=== PATIENT | male | born 1945 | race Two or more races ===

== ENCOUNTER 2024-09-24 20:54 | Inpatient (IN) | payer MEDICARE ==
[~2024-09-24] VITALS: Ht 160 cm; Wt 62.6 kg
[2024-09-24 21:43] LABS: WHITE BLOOD COUNT (AUTO) 3.4 K/uL (4.3-11.0)
[2024-09-24 21:55] LABS: BASOPHILS % (AUTO) 0.2 % (0.0-2.0); EOSINOPHILS % (AUTO) 0.6 % (0.0-6.0); HEMATOCRIT 43 % (39-51); HEMOGLOBIN 15.1 g/dL (13.5-17.5); LYMPHOCYTES # (AUTO) 1.2 K/uL (0.8-4.8); LYMPHOCYTES % (AUTO) 36.7 % (20.0-44.0); MEAN CORPUSCULAR HEMOGLOBIN 31 PG (26.0-33.0); MEAN CORPUSCULAR HGB CONC 35 g/dl (31.0-36.0); MEAN CORPUSCULAR VOLUME 89 fL (80-96); MONOCYTES # (AUTO) 0.7 K/uL (0.1-1.30); MONOCYTES % (AUTO) 19.5 % (2.0-12.0); NEUTROPHILS # (AUTO) 1.5 K/uL (1.8-8.9); PLATELET COUNT (AUTO) 153 K/uL (150-450); RED BLOOD CELL COUNT(AUTO) 4.87 MIL/uL (4.5-6.0); RED CELL DISTRIBUTION WIDTH 13.8 % (11.5-15.0)
[2024-09-24 21:58] LABS: INR 1.07 (0.91-1.10); PARTIAL THROMBOPLASTIN TIME 28.5 SEC (24.3-34.3); PROTHROMBIN TIME 11.3 SECS (9.2-11.1)
[2024-09-24 22:17] LABS: ALANINE AMINOTRANSFERASE 34 U/L (12-78); ALBUMIN 3.8 g/dL (3.4-5.0); ALKALINE PHOSPHATASE 97 U/L (46-116); ASPARTATE AMINOTRANSFERASE 48 U/L (15-37); BILIRUBIN,DIRECT 0.2 mg/dL (0.0-0.2); BILIRUBIN,TOTAL 0.8 mg/dL (0.2-1.0); CALCIUM, SERUM 9.5 mg/dL (8.5-10.1); CARBON DIOXIDE 30 mmol/L (21-32); CHLORIDE 96 mmol/L (98-107); POTASSIUM 4.2 mmol/L (3.5-5.1); SODIUM SERUM 131 mmol/L (136-145); TOTAL PROTEIN, SERUM 7.9 g/dL (6.4-8.2); UREA NITROGEN, BLOOD 14 mg/dL (7-18)
[2024-09-24 22:21] LABS: BAND % (MANUAL) 1 % (0.0-5.0); EOSINOPHILS % (MANUAL) 1 % (0-4); LYMPHOCYTES % (MANUAL) 38 % (16-48); MONOCYTES % (MANUAL) 18 % (0-11.0); NEUTROPHILS % (MANUAL) 42 (42-76); PLATELET ESTIMATE ADEQUATE
[2024-09-24 22:22] LABS: ANISOCYTOSIS 1+
[2024-09-24 22:27] LABS: GLUCOSE 49 mg/dL (74-106)
[2024-09-24 22:28] LABS: LACTIC ACID 2.5 mmol/L (0.4-2.0)
[2024-09-24] MEDS ORDERED: DEXTROSE 50%-WATER 50 ML DISP.SYRIN ONE (22:43)
[2024-09-24 22:47] LABS: APPEARANCE,URINE CLEAR (CLEAR); BILIRUBIN,URINE NEGATIVE (NEGATIVE); BLOOD, URINE NEGATIVE Ery/uL (NEGATIVE); COLOR,URINE YELLOW (YELLOW); KETONES,URINE NEGATIVE (NEGATIVE); LEUKOCYTE ESTERASE ,URINE NEGATIVE (NEGATIVE); NITRITE, URINE NEGATIVE (NEGATIVE); PH,URINE 7.5 (5.0-8.0); PROTEIN,URINE NEGATIVE (NEGATIVE); UGLUCOSE NEGATIVE (NEGATIVE)
[2024-09-24] MEDS: DEXTROSE 50%-WATER 50 ML DISP.SYRIN IVP ONE (22:55)
[2024-09-24 22:57] LABS: RBC,URINE NONE SEEN /HPF (0-2); WBC,URINE 0-2 /HPF (0-3)
[2024-09-24 22:58] LABS: ADD URINE CULTURE NO; BACTERIA,URINE None seen /HPF (None Seen); SQUAMOUS EPITHELIAL CELL,UR Rare /HPF (None Seen)
[2024-09-24] MEDS: IV NS 0.9% 1,000 ML BAG IV ONE (23:15)
[2024-09-25] MEDS: ACETAMINOPHEN 325 MG TABLET PO ONE (00:29)
[2024-09-25] MEDS ORDERED: MAG HYDROX/AL HYDROX/SIMETH 30 ML UDC PO PRN (00:30)
[2024-09-25] MEDS ORDERED: MAGNESIUM HYDROXIDE 30 ML UDC PO PRN (00:30)
[2024-09-25] MEDS ORDERED: ONDANSETRON HCL/PF 4 MG/2 ML VIAL IVP PRN (00:30)
[2024-09-25] MEDS ORDERED: Z GUARD REMEDY 4 OZ OINT TP PRN (00:30)
[2024-09-25] MEDS ORDERED: ALBUTEROL FS 2.5 MG/3 ML VIAL.NEB NEB PRN (00:30)
[2024-09-25 02:30] VITALS: BP 113/57; TEMP 98.2; O2SAT 96
[2024-09-25] MEDS: IV NS 0.9% 1,000 ML IV PRN (03:23)
[2024-09-25 04:00] VITALS: BP 142/70; TEMP 98.1; O2SAT 97
[2024-09-25] MEDS: DEXTROSE 50%-WATER 50 ML DISP.SYRIN IV PRN (06:22)
[2024-09-25] MEDS: BLOOD SUGAR DIAGNOSTIC 1 EACH STRIP IN SCH (06:45)
[2024-09-25] MEDS: ENOXAPARIN SODIUM 30 MG/0.3 ML DISP.SYRIN SQ SCH (06:47)
[2024-09-25 07:01] LABS: BASOPHILS % (AUTO) 0.2 % (0.0-2.0); EOSINOPHILS % (AUTO) 0.7 % (0.0-6.0); HEMATOCRIT 39 % (39-51); HEMOGLOBIN 13.4 g/dL (13.5-17.5); LYMPHOCYTES # (AUTO) 1.8 K/uL (0.8-4.8); LYMPHOCYTES % (AUTO) 53.6 % (20.0-44.0); MEAN CORPUSCULAR HEMOGLOBIN 30 PG (26.0-33.0); MEAN CORPUSCULAR HGB CONC 34 g/dl (31.0-36.0); MEAN CORPUSCULAR VOLUME 89 fL (80-96); MONOCYTES # (AUTO) 0.7 K/uL (0.1-1.30); MONOCYTES % (AUTO) 19.6 % (2.0-12.0); NEUTROPHILS # (AUTO) 0.9 K/uL (1.8-8.9); NEUTROPHILS % (AUTO) 25.9 % (43.0-81.0); PLATELET COUNT (AUTO) 137 K/uL (150-450); RED BLOOD CELL COUNT(AUTO) 4.42 MIL/uL (4.5-6.0); RED CELL DISTRIBUTION WIDTH 13.6 % (11.5-15.0); WHITE BLOOD COUNT (AUTO) 3.4 K/uL (4.3-11.0)
[2024-09-25 07:17] LABS: LACTIC ACID 0.6 mmol/L (0.4-2.0)
[2024-09-25 07:33] LABS: CALCIUM, SERUM 8.5 mg/dL (8.5-10.1); CREATININE 0.8 mg/dL (0.6-1.3); MAGNESIUM 1.7 mg/dL (1.8-2.4); PHOSPHORUS 3.4 mg/dL (2.5-4.9); POTASSIUM 3.4 mmol/L (3.5-5.1); THYROID STIMULATING HORMONE 0.61 uIU/mL (0.358-3.74)
[2024-09-25] MEDS: PANTOPRAZOLE 40 MG TABLET.DR PO SCH (07:36)
[2024-09-25 08:39] VITALS: BP 158/71; TEMP 97.5; O2SAT 97
[2024-09-25] MEDS ORDERED: BENZ-13 PO (08:45)
[2024-09-25] MEDS ORDERED: GLIP5TAB26 PO (08:45)
[2024-09-25] MEDS ORDERED: OSEL75CA PO (08:45)
[2024-09-25] MEDS ORDERED: CITA20TA16 PO (08:45)
[2024-09-25] MEDS ORDERED: METF-442 PO (08:45)
[2024-09-25] MEDS ORDERED: CYAN100T44 PO (08:45)
[2024-09-25] MEDS ORDERED: CHOL400T28 PO (08:45)
[2024-09-25] MEDS ORDERED: OSELTAMIVIR PHOSPHATE SUSP 6 MG/ML BOTTLE PO SCH ×2 (09:00)
[2024-09-25] MEDS: MAGNESIUM OXIDE 400 MG TABLET PO ONE (09:23)
[2024-09-25 09:47] LABS: ANISOCYTOSIS 1+; EOSINOPHILS % (MANUAL) 2 % (0-4); LYMPHOCYTES % (MANUAL) 56 % (16-48); MONOCYTES % (MANUAL) 18 % (0-11.0); NEUTROPHILS % (MANUAL) 24 (42-76); PLATELET ESTIMATE DECREASED
[2024-09-25] MEDS: POTASSIUM CHLORIDE 20 MEQ TAB.PRT.SR PO SCH (10:04)
[2024-09-25] MEDS: INSULIN REGULAR, HUMAN 100 UNIT/ML 3 ML VIAL SQ PRN (11:49)
[2024-09-25 12:00] VITALS: BP 151/69; TEMP 97.7; O2SAT 97
[2024-09-25] MEDS: OSELTAMIVIR PHOSPHATE 75 MG CAPSULE PO SCH (12:46)
[2024-09-25] MEDS: CITALOPRAM HYDROBROMIDE 20 MG TABLET PO ONE (12:58)
[2024-09-25 16:53] VITALS: BP 158/71; TEMP 97.5; O2SAT 97
[2024-09-25 20:00] VITALS: BP 160/90; TEMP 98.1; O2SAT 99
[2024-09-25] MEDS: ACETAMINOPHEN 325 MG TABLET PO PRN (20:45)
[2024-09-26] VITALS: BP 170/90; O2SAT 96
[2024-09-26] MEDS: CLONIDINE HCL 0.1 MG TABLET PO PRN ×2 (01:05→22:15)
[2024-09-26 01:20] VITALS: BP 170/90; TEMP 98.1; O2SAT 96
[2024-09-26 07:21] LABS: BASOPHILS % (AUTO) 0.4 % (0.0-2.0); EOSINOPHILS # (AUTO) 0.1 K/uL (0.0-0.7); EOSINOPHILS % (AUTO) 3.2 % (0.0-6.0); HEMATOCRIT 38 % (39-51); HEMOGLOBIN 12.9 g/dL (13.5-17.5); LYMPHOCYTES % (AUTO) 60.2 % (20.0-44.0); MEAN CORPUSCULAR HEMOGLOBIN 30 PG (26.0-33.0); MEAN CORPUSCULAR HGB CONC 34 g/dl (31.0-36.0); MEAN CORPUSCULAR VOLUME 89 fL (80-96); MONOCYTES # (AUTO) 0.6 K/uL (0.1-1.30); MONOCYTES % (AUTO) 18.2 % (2.0-12.0); NEUTROPHILS # (AUTO) 0.6 K/uL (1.8-8.9); PLATELET COUNT (AUTO) 129 K/uL (150-450); RED BLOOD CELL COUNT(AUTO) 4.25 MIL/uL (4.5-6.0); RED CELL DISTRIBUTION WIDTH 13.6 % (11.5-15.0); WHITE BLOOD COUNT (AUTO) 3.3 K/uL (4.3-11.0)
[2024-09-26 07:49] LABS: CALCIUM, SERUM 8.4 mg/dL (8.5-10.1); CREATININE 0.9 mg/dL (0.6-1.3); MAGNESIUM 2.1 mg/dL (1.8-2.4); PHOSPHORUS 3.1 mg/dL (2.5-4.9); POTASSIUM 3.8 mmol/L (3.5-5.1)
[2024-09-26 08:00] VITALS: BP 133/82; TEMP 98.1; O2SAT 96
[2024-09-26 08:02] LABS: THYROID STIMULATING HORMONE 0.35 uIU/mL (0.358-3.74); URIC ACID 2.3 mg/dL (2.6-7.2)
[2024-09-26] MEDS: CITALOPRAM HYDROBROMIDE 20 MG TABLET PO SCH (09:00)
[2024-09-26 12:00] VITALS: BP 158/79; TEMP 97.7; O2SAT 100
[2024-09-26 16:00] VITALS: BP 161/88; TEMP 98.1; O2SAT 100
[2024-09-26 20:00] VITALS: BP_SYST 160; BP_SYST 170; BP_DIAS 100; BP_DIAS 80; TEMP 98.6; O2SAT 97
[2024-09-26 20:35] LABS: APPEARANCE,URINE CLEAR (CLEAR); BILIRUBIN,URINE NEGATIVE (NEGATIVE); BLOOD, URINE NEGATIVE Ery/uL (NEGATIVE); COLOR,URINE YELLOW (YELLOW); KETONES,URINE NEGATIVE (NEGATIVE); LEUKOCYTE ESTERASE ,URINE NEGATIVE (NEGATIVE); NITRITE, URINE NEGATIVE (NEGATIVE); PROTEIN,URINE NEGATIVE (NEGATIVE); UGLUCOSE 2+ mg/dL (NEGATIVE); UROBILINOGEN,URINE 0.2 EU/dL (0.2)
[2024-09-26 20:57] LABS: ADD URINE CULTURE YES; BACTERIA,URINE 2+ /HPF (None Seen); CALCIUM OXALATE CRYSTALS,UR Many /HPF (None Seen); RBC,URINE NONE SEEN /HPF (0-2); SQUAMOUS EPITHELIAL CELL,UR None Seen /HPF (None Seen); WBC,URINE NONE SEEN /HPF (0-3)
[2024-09-26 21:21] LABS: URINE SODIUM, RANDOM 67 mmol/l (40-220)
[2024-09-26] MEDS: VANCOMYCIN 1 GM /D5W 250 ML PB IV ONE (21:26)
[2024-09-26] MEDS: VANCOMYCIN 1 GM in IV D5W 250ml IV ONE (21:27)
[2024-09-27] VITALS: BP 148/75; TEMP 98.1; O2SAT 99
[2024-09-27 06:30] LABS: BASOPHILS % (AUTO) 0.2 % (0.0-2.0); EOSINOPHILS # (AUTO) 0.1 K/uL (0.0-0.7); EOSINOPHILS % (AUTO) 1.9 % (0.0-6.0); HEMATOCRIT 35 % (39-51); HEMOGLOBIN 12.3 g/dL (13.5-17.5); LYMPHOCYTES % (AUTO) 56.4 % (20.0-44.0); MEAN CORPUSCULAR HEMOGLOBIN 31 PG (26.0-33.0); MEAN CORPUSCULAR HGB CONC 35 g/dl (31.0-36.0); MEAN CORPUSCULAR VOLUME 89 fL (80-96); MONOCYTES # (AUTO) 0.7 K/uL (0.1-1.30); MONOCYTES % (AUTO) 12.6 % (2.0-12.0); NEUTROPHILS # (AUTO) 1.6 K/uL (1.8-8.9); NEUTROPHILS % (AUTO) 28.9 % (43.0-81.0); PLATELET COUNT (AUTO) 133 K/uL (150-450); RED BLOOD CELL COUNT(AUTO) 3.97 MIL/uL (4.5-6.0); RED CELL DISTRIBUTION WIDTH 13.9 % (11.5-15.0); WHITE BLOOD COUNT (AUTO) 5.4 K/uL (4.3-11.0)
[2024-09-27 07:00] LABS: CALCIUM, SERUM 8.4 mg/dL (8.5-10.1); CREATININE 0.8 mg/dL (0.6-1.3); POTASSIUM 3.6 mmol/L (3.5-5.1)
[2024-09-27] MEDS: VANCOMYCIN 500 MG in IV D5W 100ml IV ONE (08:07)
[2024-09-27 08:28] VITALS: BP 144/72; TEMP 97.7; O2SAT 97
[2024-09-27 15:56] VITALS: BP 124/63; TEMP 97.4; O2SAT 97
[2024-09-27 20:00] VITALS: BP 160/80; TEMP 98.2; O2SAT 98
[2024-09-27] MEDS: VANCOMYCIN 750 MG in IV D5W 250 ML IV SCH (20:12)
[2024-09-27 21:02] VITALS: BP 161/80; TEMP 98.2; O2SAT 98
[2024-09-27] MEDS: GUAIFENESIN/CODEINE 10 ML UDC PO PRN (22:28)
[2024-09-28] VITALS (7 sets, daily range): BP systolic 123–177; BP diastolic 66–100; TEMP 97.3–98.2; O2SAT 96–99
[2024-09-28 07:26] LABS: CALCIUM, SERUM 8.2 mg/dL (8.5-10.1); CREATININE 0.8 mg/dL (0.6-1.3); POTASSIUM 3.5 mmol/L (3.5-5.1)
[2024-09-28 07:46] LABS: BASOPHILS % (AUTO) 0.1 % (0.0-2.0); EOSINOPHILS # (AUTO) 0.1 K/uL (0.0-0.7); HEMATOCRIT 36 % (39-51); HEMOGLOBIN 12.8 g/dL (13.5-17.5); LYMPHOCYTES # (AUTO) 2.7 K/uL (0.8-4.8); LYMPHOCYTES % (AUTO) 59.6 % (20.0-44.0); MEAN CORPUSCULAR HEMOGLOBIN 31 PG (26.0-33.0); MEAN CORPUSCULAR HGB CONC 35 g/dl (31.0-36.0); MEAN CORPUSCULAR VOLUME 87 fL (80-96); MONOCYTES # (AUTO) 0.5 K/uL (0.1-1.30); MONOCYTES % (AUTO) 10.9 % (2.0-12.0); NEUTROPHILS # (AUTO) 1.2 K/uL (1.8-8.9); NEUTROPHILS % (AUTO) 27.4 % (43.0-81.0); PLATELET COUNT (AUTO) 137 K/uL (150-450); RED BLOOD CELL COUNT(AUTO) 4.16 MIL/uL (4.5-6.0); RED CELL DISTRIBUTION WIDTH 13.6 % (11.5-15.0); WHITE BLOOD COUNT (AUTO) 4.5 K/uL (4.3-11.0)
[2024-09-28] MEDS: VANCOMYCIN 750 MG in IV D5W 250 ML IV SCH (17:23)
[2024-09-28 22:40] LABS: OSMOLALITY,URINE 519 mOS/kg (340-1090)
[2024-09-29] VITALS: BP 164/77; TEMP 97.5; O2SAT 99
[2024-09-29 04:00] VITALS: BP_SYST 155; BP_SYST 165; BP_DIAS 68; BP_DIAS 75; TEMP 97.7; O2SAT 99
[2024-09-29 07:00] VITALS: BP 147/71; TEMP 97.4; O2SAT 100; O2SAT 99
[2024-09-29 07:00] LABS: BASOPHILS % (AUTO) 0.1 % (0.0-2.0); EOSINOPHILS # (AUTO) 0.1 K/uL (0.0-0.7); EOSINOPHILS % (AUTO) 1.2 % (0.0-6.0); HEMATOCRIT 39 % (39-51); HEMOGLOBIN 13.4 g/dL (13.5-17.5); LYMPHOCYTES # (AUTO) 2.8 K/uL (0.8-4.8); LYMPHOCYTES % (AUTO) 56.1 % (20.0-44.0); MEAN CORPUSCULAR HEMOGLOBIN 31 PG (26.0-33.0); MEAN CORPUSCULAR HGB CONC 34 g/dl (31.0-36.0); MEAN CORPUSCULAR VOLUME 89 fL (80-96); MONOCYTES # (AUTO) 0.5 K/uL (0.1-1.30); MONOCYTES % (AUTO) 10.1 % (2.0-12.0); NEUTROPHILS # (AUTO) 1.6 K/uL (1.8-8.9); NEUTROPHILS % (AUTO) 32.5 % (43.0-81.0); PLATELET COUNT (AUTO) 138 K/uL (150-450); RED BLOOD CELL COUNT(AUTO) 4.37 MIL/uL (4.5-6.0); RED CELL DISTRIBUTION WIDTH 13.3 % (11.5-15.0)
[2024-09-29 08:01] LABS: CALCIUM, SERUM 8.3 mg/dL (8.5-10.1); CREATININE 0.7 mg/dL (0.6-1.3)
[2024-09-29 09:15] VITALS: BP 174/80
[2024-09-29] MEDS: VALSARTAN 80 MG TABLET PO SCH (09:15)
[2024-09-29] MEDS ORDERED: VALS80TA31 PO (12:08)
[2024-09-29] MEDS ORDERED: VANCOMYCIN 750 MG in IV D5W 250 ML IV SCH (14:00)
== END 2024-09-29 14:30 | disposition home health service (06) | DRG 871 ==
LOC: EDSEX 20:57 → ER 20:57 → TELE 09-25 01:31 → MED 09-27 00:31 → TELE 09-27 12:20
PROVIDERS: ADMIT Nurse Practitioner Family; ATTEND Nurse Practitioner Acute Care
DX: A41.89 Other specified sepsis (principal); G93.41 Metabolic encephalopathy; E87.1 Hypo-osmolality and hyponatremia; E87.20 Acidosis, unspecified; Z20.822 Contact with and (suspected) exposure to COVID-19; Z88.5 Allergy status to narcotic agent; E11.649 Type 2 diabetes mellitus with hypoglycemia without coma; Z85.6 Personal history of leukemia; Z98.890 Other specified postprocedural states; Z79.84 Long term (current) use of oral hypoglycemic drugs; Z79.899 Other long term (current) drug therapy; E86.0 Dehydration; E87.6 Hypokalemia; E86.9 Volume depletion, unspecified; J10.1 Influenza due to other identified influenza virus with other respiratory manifestations; B96.89 Other specified bacterial agents as the cause of diseases classified elsewhere; N40.0 Benign prostatic hyperplasia without lower urinary tract symptoms; R00.1 Bradycardia, unspecified
CPT/HCPCS: 36415; 71045-TC; 71250-TC; 80048-TC; 80076-TC; 80202-TC; 81001; 82962-TC; 83605-TC; 83735-TC; 83935-TC; 84100-TC; 84300-TC; 84443-TC; 84550-TC; 85025-TC; 85730-TC; 87040-TC; 87086-TC; 93307-TC; 97110-TC; 97116-TC; 97530-TC; 97535-TC; A4223; G0378; J1650; J1815; J3370; J3371; J7030; J7040; J7050; J7060